=== PATIENT | female | born 1980 | race Two or more races ===

== ENCOUNTER 2023-03-20 16:45 | Emergency (ER) | payer MEDICAID, OTHER ==
[~2023-03-20] VITALS: Ht 152.4 cm; Wt 65.0 kg
[2023-03-20 17:01] VITALS: BP 112/75; PULSE 92; RESP 18; TEMP 98.7
[2023-03-20 17:51] LABS: Urine Amorphous Crystal FEW /hpf (None Seen); Urine Bacteria NONE SEEN /hpf (None Seen); Urine Blood Negative /uL (Negative); Urine Clarity HAZY (Clear); Urine Color Yellow (Yellow); Urine Mucus FEW (None Seen); Urine Protein, UAD Negative (Negative); Urine Specific Gravity 1.023 (1.001-1.035); Urine Urobilinogen Normal (Negative); Urine WBC 2 /hpf (0 - 5); Urine pH 6.5 (5.0-8.0)
[2023-03-20 19:42] VITALS: O2SAT 99
[2023-03-20] MEDS ORDERED: HYDROcodone-ACET 5/325MG TAB PO ONE (20:15)
[2023-03-20] MEDS ORDERED: KETOROLAC TROMETH 60MG/2ML VIAL IM ONE (20:15)
[2023-03-20] MEDS ORDERED: KETO2CRE4 TOP (23:23)
== END 2023-03-20 23:25 | disposition home or self-care (01) ==
LOC: ER 16:45
DX: S33.5XXA Sprain of ligaments of lumbar spine, initial encounter (principal); M54.16 Radiculopathy, lumbar region; R21 Rash and other nonspecific skin eruption; L29.9 Pruritus, unspecified; Z76.0 Encounter for issue of repeat prescription; Z79.899 Other long term (current) drug therapy; Z88.0 Allergy status to penicillin; X50.1XXA Overexertion from prolonged static or awkward postures, initial encounter; Y93.89 Activity, other specified; Y92.89 Other specified places as the place of occurrence of the external cause; Y99.8 Other external cause status
CPT/HCPCS: 72131; 81001; 96372; 99285; J1885

== ENCOUNTER 2024-03-04 17:03 | Inpatient (IN) | payer MEDICAID, OTHER ==
[~2024-03-04] VITALS: Ht 152.4 cm; Wt 63.0 kg
[2024-03-04 00:43] VITALS: PULSE 79; RESP 17; O2SAT 98
[~2024-03-04 17:03] MED LIST: KETO2CRE4 TOP
[2024-03-04 17:56] LABS: Urine Bacteria None Seen /hpf (None Seen)
[2024-03-04 18:07] LABS: Basophils # (auto) 0 10 ^3/uL (0-0.2); Basophils % (auto) 0.4 % (0.0-2.0); Eosinophils # (auto) 0 10 ^3/uL (0-0.8); Eosinophils % (auto) 0.9 % (0.0-7.0); Hematocrit 31.7 % (36.0-46.0); Hemoglobin 10.1 g/dL (12.2-16.2); Lymphocytes # (auto) 1.6 10 ^3/uL (0.4-5.4); Lymphocytes % (auto) 30.3 % (10.0-50.0); Mean Corpuscular Hemoglobin 24.7 pg (28.0-32.0); Mean Corpuscular Hgb Conc. 31.8 g/dL (32.0-36.0); Mean Corpuscular Volume 77.8 fL (80.0-100.0); Monocytes # (auto) 0.4 10 ^3/uL (0-1.3); Monocytes % (auto) 7.4 % (0.0-12.0); Neutrophils # (auto) 3.1 10 ^3/uL (1.6-8.6); Nucleated Red Blood Cells % 0.2 %; Platelet Count (auto) 452 10^3/uL (140-450); Red Blood Cells 4.07 10^6/uL (4.0-5.20); Red Cell Distribution Width 19.7 % (11.8-14.3); White Blood Cell 5.1 10^3/uL (4.4-10.8)
[2024-03-04 18:12] LABS: Urine Blood Negative /uL (Negative); Urine Clarity Clear (Clear); Urine Color Yellow (Yellow); Urine Mucus FEW (None Seen); Urine Protein, UAD TRACE (Negative); Urine Specific Gravity 1.029 (1.001-1.035); Urine Urobilinogen Normal (Negative); Urine WBC <1 /hpf (0 - 5); Urine pH 5.5 (5.0-9.0)
[2024-03-04 18:45] LABS: Alanine Aminotransferase 15 U/L (7-40); Albumin 4.5 g/dL (3.2-4.8); Alkaline Phosphatase 93 U/L (46-116); Anion Gap 7 (5-15); Aspartate Aminotransferase 15 U/L (13-40); BUN/Creatinine Ratio 10.6 (10.0-20.0); Bilirubin, Total 0.5 mg/dL (0.2-1.0); Blood Urea Nitrogen 7 mg/dL (9-23); Calcium 9.6 mg/dL (8.7-10.4); Carbon Dioxide 28 mmol/L (20-31); Chloride 105 mmol/L (98-107); Glucose 86 mg/dL (74-106); Sodium 140 mmol/L (136-145); Total Protein 7.9 g/dL (5.7-8.2)
[2024-03-04] MEDS ORDERED: HYDROcodone-ACET 5/325MG TAB PO PRN (21:45)
[2024-03-04] MEDS ORDERED: ONDANSETRON HCL 4 MG/2 ML VIAL IV PRN (21:45)
[2024-03-04] MEDS ORDERED: MORPHINE SULFATE INJ 2 MG/ml SYRG IV PRN ×2 (21:45)
[2024-03-04] MEDS ORDERED: ACETAMINOPHEN 325 MG TAB PO PRN (21:45)
[2024-03-04] MEDS ORDERED: LACTULOSE 20Gm/30ML SOLN PO PRN (21:45)
[2024-03-04] MEDS ORDERED: NITROGLYCERIN 0.4 MG SL TAB SL PRN (21:45)
[2024-03-04] MEDS: MORPHINE SULFATE 4 MG/ML SYR/VIAL IV ONE (22:09)
[2024-03-04] MEDS: ONDANSETRON HCL 4 MG/2 ML VIAL IV ONE (22:10)
[2024-03-04 22:22] VITALS: PULSE 77; RESP 18; O2SAT 100
[2024-03-04 23:50] VITALS: BP 123/78; PULSE 79; RESP 17; TEMP 98.4; O2SAT 98
[2024-03-05] VITALS (7 sets, daily range): BP systolic 95–120; BP diastolic 42–69; PULSE 66–87; RESP 16–18; TEMP 98.3–98.6; O2SAT 96–100
[2024-03-05] MEDS: ENOXAPARIN SOD 40 MG/0.4 ML SYRINGE SC SCH (09:43)
[2024-03-06] VITALS (9 sets, daily range): BP systolic 103–116; BP diastolic 56–68; PULSE 67–98; RESP 16–20; TEMP 37.2; O2SAT 97–100
[2024-03-06] MEDS ORDERED: FLUMAZENIL 0.1 MG/ML INJ 10ML MDV IV ONE (09:30)
[2024-03-06] MEDS ORDERED: SODIUM CHLORIDE LOCK 10 ML ONE (09:30)
[2024-03-06] MEDS ORDERED: NALOXONE HCL 0.4 MG/ML VIAL ONE (09:30)
[2024-03-06] MEDS: LIDOCAINE VISCOUS 2% 15ML UD ONE (15:13)
[2024-03-06] MEDS: diphenhdrAMINE HCL 50 MG/1 ML VL ONE (15:15)
[2024-03-06] MEDS: MIDAZOLAM HCL 5 MG/ML-1ML VIAL ONE (15:15)
[2024-03-06] MEDS: fentaNYL CITRATE 100 MCG/2 ML VL ONE (15:15)
[2024-03-06] MEDS ORDERED: PANT40TA2 PO (16:28)
[2024-03-07] MEDS ORDERED: PANTOPRAZOLE 40 MG TAB PO SCH (06:00)
== END 2024-03-06 21:34 | disposition home or self-care (01) | DRG 241 ==
LOC: ER 17:03 → TELE 21:44 → TELE-WESTW 23:47
PROVIDERS: ADMIT Internal Medicine; ATTEND Internal Medicine
PROC: 0DB68ZX Excision of Stomach, Via Natural or Artificial Opening Endoscopic, Diagnostic (ICD-10-PCS; 2024-03-06)
PROC: 0DB68ZZ Excision of Stomach, Via Natural or Artificial Opening Endoscopic (ICD-10-PCS; 2024-03-06)
PROC: 0DB98ZX Excision of Duodenum, Via Natural or Artificial Opening Endoscopic, Diagnostic (ICD-10-PCS; principal; 2024-03-06 15:05)
DX: K29.90 Gastroduodenitis, unspecified, without bleeding (principal); K22.10 Ulcer of esophagus without bleeding; K29.80 Duodenitis without bleeding; K44.9 Diaphragmatic hernia without obstruction or gangrene; K31.7 Polyp of stomach and duodenum; K21.9 Gastro-esophageal reflux disease without esophagitis; D25.9 Leiomyoma of uterus, unspecified; N92.0 Excessive and frequent menstruation with regular cycle; M54.16 Radiculopathy, lumbar region; M79.18 Myalgia, other site; Z88.0 Allergy status to penicillin; D50.0 Iron deficiency anemia secondary to blood loss (chronic)
CPT/HCPCS: 36415; 43239; 74176; 76856; 80053; 81001; 81025; 84702; 85025; G0378; J2250